=== PATIENT | female | born 1940 | race African-American/Black ===

== ENCOUNTER 2018-04-17 01:14 | Inpatient (IN) ==
[2018-04-17] MEDS ORDERED: DEXTROSE 50% 25 GM/50 ML SYRINGE IV ONE (03:35)
[2018-04-17 03:53] LABS: Hematocrit 36.4 VOL% (35.7-47.0); Hemoglobin 11.9 GM/DL (12.0-16.0); Red Blood Count 3.96 MC/CUMM (3.8-5.5); White Blood Count 9.5 T/CUMM (4-12)
[2018-04-17 03:54] LABS: Basophils % 0.2 % (0.0-0.8); Eosinophils % 0.4 % (0.00-10.9); Immature Granulocytes % 0.3 %; Immature Granulocytes Absolute 0.03 #; Lymphocytes # 2.3 10*3/uL (1.4-4.0); Lymphocytes % 24.6 % (21.3-54.2); Mean Corpuscular HGB Conc 32.7 GM/DL (32-36); Mean Corpuscular Hemoglobin 30 PG (27-34); Mean Corpuscular Volume 91.9 FL (87-102); Mean Platelet Volume 11.2 FL (9.6-12.0); Monocytes # 0.8 10*3/uL (0.11-0.8); Monocytes % 8.4 % (1.7-12.7); Neutrophils # 6.3 10*3/uL (1.4-7.4); Neutrophils % 66.1 % (38.7-73.9); Platelet Count 262 T/CUMM (130-400); Red Cell Distribution Width 13.5 % (9.3-17.3)
[2018-04-17] MEDS: DEXTROSE 10% 1,000 ML IV SCH ×3 (03:58→23:09)
[2018-04-17 04:06] LABS: Alanine Aminotransferase 14 U/L (13-56); Albumin 3.6 G/DL (3.4-5.0); Alkaline Phosphatase 68 U/L (45-117); Aspartate Amino Transferase 13 U/L (0-37); Bilirubin,Total < 0.39 MG/DL (0.2-1.0); Blood Urea Nitrogen 15 MG/DL (7-18); Calcium 9.1 MG/DL (8.5-10.1); Glucose 118 MG/DL (74-106); Osmolality,Calculated 280.4 MOS/KG (273-304); Potassium 3.4 MMOL/L (3.5-5.1); Sodium 140 MMOL/L (136-145); Total Protein 7.4 G/DL (6.4-8.3)
[2018-04-17] MEDS ORDERED: DEXTROSE 50% 25 GM/50 ML VIAL IV STA (04:34)
[2018-04-17] MEDS ORDERED: ALBUTEROL 2.5 MG/3 ML NEB RESP TX PRN (05:16)
[2018-04-17] MEDS ORDERED: GLUCAGON 1 MG VIAL IM PRN (05:16)
[2018-04-17] MEDS ORDERED: hydrALAZINE 20 MG/1 ML VIAL IV PRN (05:19)
[2018-04-17] MEDS ORDERED: DEXTROSE 10% 1,000 ML IV SCH (05:30)
[2018-04-17] MEDS ORDERED: POTASSIUM CHLORIDE 20 MEQ TABLET PO ONE (06:30)
[2018-04-17] MEDS ORDERED: NIFEdipine 10 MG CAPSULE PO PRN (07:54)
[2018-04-17] MEDS: LISINOPRIL 20 MG TABLET PO SCH (08:24)
[2018-04-17] MEDS: ENOXAPARIN 40 MG/0.4 ML SYRINGE SUBCUT SCH (08:24)
[2018-04-17] MEDS: CARVEDILOL 6.25 MG TABLET PO SCH ×2 (08:24→22:00)
[2018-04-18 04:59] LABS: Osmolality,Calculated 279.1 MOS/KG (273-304); Potassium 3.8 MMOL/L (3.5-5.1)
[2018-04-18] MEDS ORDERED: DEXTROSE 50% 25 GM/50 ML VIAL IV PRN (06:02)
[2018-04-18] MEDS: INSULIN REGULAR 100 UNIT/ML SUBCUT SCH ×6 (06:29→20:57)
[2018-04-18] MEDS: ENOXAPARIN 40 MG/0.4 ML SYRINGE SUBCUT SCH (09:17)
[2018-04-18] MEDS: FUROSEMIDE 20 MG TABLET PO SCH (09:17)
[2018-04-18] MEDS: LISINOPRIL 20 MG TABLET PO SCH (09:17)
[2018-04-18] MEDS: CARVEDILOL 6.25 MG TABLET PO SCH ×2 (09:17→20:57)
[2018-04-18] MEDS: DEXTROSE 10% 1,000 ML IV SCH (10:39)
[2018-04-18] MEDS ORDERED: ATORVASTATIN 10 MG TABLET PO SCH (21:00)
[2018-04-19] MEDS: INSULIN REGULAR 100 UNIT/ML SUBCUT SCH ×5 (03:32→12:57)
[2018-04-19 06:25] LABS: Calcium 8.8 MG/DL (8.5-10.1); Potassium 4.3 MMOL/L (3.5-5.1)
[2018-04-19] MEDS: ENOXAPARIN 40 MG/0.4 ML SYRINGE SUBCUT SCH (08:18)
[2018-04-19] MEDS: FUROSEMIDE 20 MG TABLET PO SCH (08:18)
[2018-04-19] MEDS: LISINOPRIL 20 MG TABLET PO SCH (08:18)
[2018-04-19] MEDS: CARVEDILOL 6.25 MG TABLET PO SCH (08:18)
[2018-04-19] MEDS ORDERED: amLODIPine 5 MG TABLET PO SCH (09:00)
[2018-04-19 14:12] VITALS: BP 152/74
== END 2018-04-19 14:10 | disposition home or self-care (01) | DRG 638 ==
LOC: EDUNIT# → EDBD → N.ED 01:14 → SUATTDRO 05:16 → N.EDINP 05:16 → N.CC 05:49
PROVIDERS: ADMIT Internal Medicine; ATTEND Internal Medicine